=== PATIENT | male | born 1995 | race Two or more races ===

== ENCOUNTER 2025-09-12 23:19 | Emergency (ER) | payer MEDICAID ==
[~2025-09-12] VITALS: Ht 180.3 cm; Wt 71.8 kg
[2025-09-12 23:34] VITALS: TEMP 98.4
[2025-09-13] MEDS: ACETAMINOPHEN 1000 MG/ISO-OSM 100 ML IV ONE (00:41)
[2025-09-13] MEDS: ONDANSETRON HCL 4 MG/2 ML VIAL IVP ONE (00:41)
[2025-09-13] MEDS: SODIUM CHLORIDE 0.9% 1,000 ML IV ONE (00:42)
[2025-09-13 01:15] LABS: PLATELET COUNT (AUTO) 324 K/uL (150-450); RED BLOOD CELL COUNT(AUTO) 4.63 MIL/uL (4.50-5.90); RED CELL DISTRIBUTION WIDTH 15.4 % (11.5-14.5); WHITE BLOOD COUNT (AUTO) 7.8 K/uL (4.5-11.0)
[2025-09-13 01:20] LABS: CALCIUM, TOTAL 9.1 mg/dL (8.8-10.5); CREATININE 0.67 mg/dL (0.60-1.30); GLOMERULAR FILTR. RATE CALC > 60 mL/min (>60); GLUCOSE,RANDOM 96 mg/dL (70-110); SODIUM SERUM 140 mmol/L (136-145); UREA NITROGEN, BLOOD 3 mg/dL (7-18)
[2025-09-13] MEDS ORDERED: GABA-1181 PO (03:03)
[2025-09-13 03:44] VITALS: BP 134/82; PULSE 92; RESP 16; O2SAT 99
== END 2025-09-13 04:15 | disposition home or self-care (01) ==
LOC: EMS 23:19
DX: F10.239 Alcohol dependence with withdrawal, unspecified (principal); Y90.9 Presence of alcohol in blood, level not specified
CPT/HCPCS: 99284; 80048; 83735; 85025; 36415; 96374; 96375; J2405; J7030; J0131